=== PATIENT | female | born 1980 | race Caucasian/White ===

== ENCOUNTER 2023-06-02 10:33 | Outpatient (CLI) | payer BC ==
[2023-06-02] MEDS ORDERED: Iopamidol 370 76% 100 ML VIAL ONE (14:04)
== END 2023-06-02 10:34 | disposition home or self-care (01) ==
LOC: BICCT 10:33
PROVIDERS: ATTEND Internal Medicine Hematology & Oncology
DX: C18.7 Malignant neoplasm of sigmoid colon (principal); C78.01 Secondary malignant neoplasm of right lung; K76.0 Fatty (change of) liver, not elsewhere classified; K59.00 Constipation, unspecified; R91.8 Other nonspecific abnormal finding of lung field; Z90.49 Acquired absence of other specified parts of digestive tract
CPT/HCPCS: 71260; 74177

== ENCOUNTER 2023-08-16 07:31 | Outpatient (CLI) | payer BC ==
[2023-08-16] MEDS ORDERED: Iopamidol 370 76% 100 ML VIAL ONE (09:04)
== END 2023-08-16 07:32 | disposition home or self-care (01) ==
LOC: CT 07:31
PROVIDERS: ATTEND Internal Medicine Hematology & Oncology
DX: C18.7 Malignant neoplasm of sigmoid colon (principal); C78.01 Secondary malignant neoplasm of right lung; K76.0 Fatty (change of) liver, not elsewhere classified; R91.8 Other nonspecific abnormal finding of lung field; Z90.49 Acquired absence of other specified parts of digestive tract
CPT/HCPCS: 71260; 74177

== ENCOUNTER 2024-05-27 09:02 | Outpatient (CLI) | payer BC ==
[2024-05-27] MEDS ORDERED: Iopamidol 370 76% 100 ML VIAL ONE (09:53)
== END 2024-05-27 09:03 | disposition home or self-care (01) ==
LOC: BICCT 09:02
PROVIDERS: ATTEND Internal Medicine Hematology & Oncology
DX: C18.7 Malignant neoplasm of sigmoid colon (principal); C78.01 Secondary malignant neoplasm of right lung; J98.4 Other disorders of lung; R91.8 Other nonspecific abnormal finding of lung field; N63.20 Unspecified lump in the left breast, unspecified quadrant; Z98.890 Other specified postprocedural states
CPT/HCPCS: 71260; 74177; 82565; Q9967

== ENCOUNTER 2024-07-29 15:38 | Outpatient (CLI) | payer BC ==
[~2024-07-29 15:38] MED LIST: Iopamidol 370 76% 100 ML VIAL ONE
== END 2024-07-29 15:39 | disposition home or self-care (01) ==
LOC: BICCT 15:38
PROVIDERS: ATTEND Internal Medicine Hematology & Oncology
DX: C18.7 Malignant neoplasm of sigmoid colon (principal); C78.01 Secondary malignant neoplasm of right lung; R91.8 Other nonspecific abnormal finding of lung field
CPT/HCPCS: 71260; 74177

== ENCOUNTER 2025-03-24 08:33 | Outpatient (CLI) | payer BC ==
[2025-03-24] MEDS ORDERED: Iopamidol 370 76% 100 ML VIAL ONE (09:56)
== END 2025-03-24 08:34 | disposition home or self-care (01) ==
LOC: CT 08:33
PROVIDERS: ATTEND Internal Medicine Hematology & Oncology
DX: C18.7 Malignant neoplasm of sigmoid colon (principal); C78.01 Secondary malignant neoplasm of right lung; J95.4 Chemical pneumonitis due to anesthesia; R91.8 Other nonspecific abnormal finding of lung field
CPT/HCPCS: 71260; 74177; Q9967

== ENCOUNTER 2025-05-09 07:51 | Outpatient (CLI) | payer BC ==
[2025-05-09] MEDS ORDERED: Iopamidol 370 76% 100 ML VIAL ONE (12:57)
== END 2025-05-09 07:52 | disposition home or self-care (01) ==
LOC: CT 07:51
PROVIDERS: ATTEND Internal Medicine Hematology & Oncology
DX: C18.7 Malignant neoplasm of sigmoid colon (principal); C78.01 Secondary malignant neoplasm of right lung; R91.8 Other nonspecific abnormal finding of lung field; N63.20 Unspecified lump in the left breast, unspecified quadrant
CPT/HCPCS: 71260; Q9967

== ENCOUNTER 2025-06-18 12:43 | Inpatient (IN) | payer BC ==
[~2025-06-18 12:43] MED LIST changes: -Iopamidol 370 76% 100 ML VIAL ONE; +Iopamidol-370 76% 500 ML MDV (1 ML CHARGE) ONE
[2025-06-18 13:54] LABS: #Basophils 0.08 10x3/uL (0.0-0.2); #Eosinophils 0.15 10x3/uL (0.0-0.7); #Monocytes 0.72 10x3/uL (0.11-0.59); #Neutrophils 7.22 10x3/uL (1.40-6.50); %Basophils 0.8 % (0.0-1.0); %Eosinophils 1.4 % (0.0-10.0); %Lymphocytes 20.3 % (21.0-51.0); %Monocytes 6.9 % (0.0-10.0); %Neutrophils 69.6 % (42.0-75.0); Hematocrit 37.2 % (36.0-47.0); Hemoglobin 12.9 g/dL (12.0-16.0); Mean Corpuscular Hemoglobin 32.4 pg (27.0-31.0); Mean Corpuscular Volume 93.5 fL (78.0-98.0); Platelet Count 256 10x3/uL (130-400); Red Blood Cell (RBC) Count 3.98 mill/uL (4.20-5.40); White Blood Cell (WBC) Count 10.38 10x3/uL (4.8-10.8)
[2025-06-18 14:08] LABS: INR-International Normal Ratio 1.0; Prothrombin Time 12.9 sec (12.0-14.7)
[2025-06-18 14:09] LABS: PTT 24.0 sec (22.9-36.1)
[2025-06-18 14:11] LABS: ALT (SGPT) 13 U/L (Less than 34); AST (SGOT) 17 U/L (11-34); Albumin 3.7 g/dL (3.1-4.5); Alkaline Phosphatase 69 U/L (40-110); Anion Gap 10 mmol/L (10-20); BUN (Urea Nitrogen) 11 mg/dL (7.0-18.7); Bilirubin, Total 0.4 mg/dL (0.3-1.2); Calc. Creatinine Clearance 0 mL/min (70-130); Calcium 8.8 mg/dL (7.8-10.44); Carbon Dioxide 25 mmol/L (22-29); Chloride 110 mmol/L (98-107); Globulin 2.6 g/dL (2.4-3.5); Glucose 96 mg/dL (70-105); Potassium 4.2 mmol/L (3.5-5.1); Sodium 141 mmol/L (136-145)
[2025-06-18] MEDS ORDERED: Ondansetron PF 4 MG/2 ML Vial IVP PRN (14:26)
[2025-06-18] MEDS ORDERED: Bisacodyl 10 MG SUPP PR PRN (15:05)
[2025-06-18] MEDS ORDERED: Pantoprazole 40 MG VIAL ONE (15:37)
[2025-06-18] MEDS ORDERED: Dexamethasone 10 MG/ML VIAL ONE (15:37)
[2025-06-18] MEDS ORDERED: niCARdipine 25 MG/10 ML SDV ONE (17:03)
[2025-06-18] MEDS: Pantoprazole 40 MG VIAL IVP SCH (17:20)
[2025-06-18] MEDS ORDERED: Dexamethasone 4 MG TAB PO SCH (18:00)
[2025-06-18] MEDS: HYDROcodone/Acetaminophen 5/325 mg Tablet PO SCH (20:11)
[2025-06-18] MEDS ORDERED: Scopolamine 1 mg/72 hour Patch TD PRN (21:23)
[2025-06-18] MEDS ORDERED: niCARdipine 25 MG in Sodium Chloride 0.9% 250 ML 250 ML IVPB SCH (22:00)
[2025-06-19] MEDS: Acetaminophen/Codeine 30-300mg Tablet PO PRN (00:38)
[2025-06-19 03:40] LABS: #Basophils 0.03 10x3/uL (0.0-0.2); #Eosinophils Less than 0.03 10x3/uL (0.0-0.7); #Monocytes 0.23 10x3/uL (0.11-0.59); #Neutrophils 13.86 10x3/uL (1.40-6.50); %Basophils 0.2 % (0.0-1.0); %Eosinophils 0.0 % (0.0-10.0); %Lymphocytes 7.3 % (21.0-51.0); %Monocytes 1.5 % (0.0-10.0); %Neutrophils 89.5 % (42.0-75.0); Hematocrit 41.0 % (36.0-47.0); Hemoglobin 14.4 g/dL (12.0-16.0); Mean Corpuscular Hemoglobin 32.9 pg (27.0-31.0); Mean Corpuscular Volume 93.6 fL (78.0-98.0); Platelet Count 269 10x3/uL (130-400); Red Blood Cell (RBC) Count 4.38 mill/uL (4.20-5.40); White Blood Cell (WBC) Count 15.48 10x3/uL (4.8-10.8)
[2025-06-19 03:57] LABS: Anion Gap 13 mmol/L (10-20); BUN (Urea Nitrogen) 12 mg/dL (7.0-18.7); Calc. Creatinine Clearance 204 mL/min (70-130); Calcium 9.4 mg/dL (7.8-10.44); Carbon Dioxide 22 mmol/L (22-29); Chloride 107 mmol/L (98-107); Glucose 145 mg/dL (70-105); Potassium 4.4 mmol/L (3.5-5.1); Sodium 138 mmol/L (136-145)
[2025-06-19] MEDS: FLU (Fluarix Triv) 25-26 (6MOS UP)/PF 45 MCG/0.5 ML Syringe IM ONE (09:33)
[2025-06-19] MEDS: Pantoprazole 40 MG DR.TAB PO SCH (09:33)
[2025-06-19] MEDS: Acetaminophen 325 MG TAB PO PRN (11:57)
[2025-06-19 12:52] VITALS: BMI 36.6
[2025-06-20 03:56] LABS: #Basophils 0.08 10x3/uL (0.0-0.2); #Eosinophils Less than 0.03 10x3/uL (0.0-0.7); #Monocytes 1.02 10x3/uL (0.11-0.59); #Neutrophils 19.96 10x3/uL (1.40-6.50); %Basophils 0.3 % (0.0-1.0); %Eosinophils 0.0 % (0.0-10.0); %Lymphocytes 6.7 % (21.0-51.0); %Monocytes 4.3 % (0.0-10.0); %Neutrophils 85.1 % (42.0-75.0); Hematocrit 40.0 % (36.0-47.0); Hemoglobin 13.9 g/dL (12.0-16.0); Mean Corpuscular Hemoglobin 32.9 pg (27.0-31.0); Mean Corpuscular Volume 94.8 fL (78.0-98.0); Platelet Count 288 10x3/uL (130-400); Red Blood Cell (RBC) Count 4.22 mill/uL (4.20-5.40); White Blood Cell (WBC) Count 23.49 10x3/uL (4.8-10.8)
[2025-06-20 04:12] LABS: Anion Gap 15 mmol/L (10-20); BUN (Urea Nitrogen) 17 mg/dL (7.0-18.7); Calc. Creatinine Clearance 210 mL/min (70-130); Calcium 9.2 mg/dL (7.8-10.44); Carbon Dioxide 21 mmol/L (22-29); Chloride 107 mmol/L (98-107); Glucose 173 mg/dL (70-105); Potassium 4.3 mmol/L (3.5-5.1); Sodium 139 mmol/L (136-145)
[2025-06-20] MEDS: PNEUMOC 20-VAL CONJ-DIP CRM/PF 0.5 ML SYRINGE IM ONE (09:05)
[2025-06-20] MEDS: Pantoprazole 40 MG VIAL IVP SCH (09:05)
[2025-06-20] MEDS ORDERED: Lidocaine 1% w/Epinephrine 1:100K 20 ML VIAL ONE ×2 (09:59)
[2025-06-20] MEDS ORDERED: Thrombin 5000 UNITS/5 ML VIAL ONE (09:59)
[2025-06-20] MEDS ORDERED: Bacitracin Zinc Ointment 30 gm TUBE ONE (09:59)
[2025-06-20] MEDS ORDERED: fentaNYL PF 100 MCG/2 ML SYRINGE ONE ×3 (10:13→14:06)
[2025-06-20] MEDS ORDERED: Rocuronium Bromide 10 MG/ML (10ML VIAL) ONE (10:13)
[2025-06-20] MEDS ORDERED: Lidocaine 1% PF 5 ML VIAL ONE (10:13)
[2025-06-20] MEDS ORDERED: CEFAZOLIN 1 GM VIAL ONE (12:02)
[2025-06-20] MEDS ORDERED: Ondansetron PF 4 MG/2 ML Vial ONE (14:00)
[2025-06-20] MEDS ORDERED: SUGAMMADEX SODIUM 200 MG/2 ML VIAL ONE (14:07)
[2025-06-20] MEDS ORDERED: MINERAL OIL/WHITE PETROLATUM 3.5 GM TUBE ONE (14:19)
[2025-06-20] MEDS: HYDROcodone/Acetaminophen 5/325 mg Tablet PO PRN (16:52)
[2025-06-21 03:47] LABS: Hematocrit 41.4 % (36.0-47.0); Hemoglobin 13.7 g/dL (12.0-16.0); Mean Corpuscular Hemoglobin 31.9 pg (27.0-31.0); Mean Corpuscular Volume 96.3 fL (78.0-98.0); Platelet Count 302 10x3/uL (130-400); Red Blood Cell (RBC) Count 4.30 mill/uL (4.20-5.40); White Blood Cell (WBC) Count 26.21 10x3/uL (4.8-10.8)
[2025-06-21 03:58] LABS: Anion Gap 14 mmol/L (10-20); BUN (Urea Nitrogen) 18 mg/dL (7.0-18.7); Calc. Creatinine Clearance 206 mL/min (70-130); Calcium 8.7 mg/dL (7.8-10.44); Carbon Dioxide 21 mmol/L (22-29); Chloride 105 mmol/L (98-107); Glucose 123 mg/dL (70-105); Potassium 4.3 mmol/L (3.5-5.1); Sodium 136 mmol/L (136-145)
[2025-06-21 04:07] LABS: Platelet Adequacy Comment Platelets Normal; Polychromasia SLIGHT = 2-3 cells HPF (0-2); Smudge Cells 6.0 %
[2025-06-21] MEDS: Ondansetron PF 4 MG/2 ML Vial IVP PRN (04:46)
[2025-06-21] MEDS: Pantoprazole 40 MG DR.TAB PO SCH (08:01)
[2025-06-21] MEDS ORDERED: Electrolyte Replacement Protocol 1 EACH FS SCH (10:15)
[2025-06-21] MEDS ORDERED: Magnesium 2 GM/50 ML(in water) 2 GM in Premix 1 BAG IVPB PRN (11:15)
[2025-06-21] MEDS ORDERED: PHOS-NAK 1 PKT PACK PO PRN (11:15)
[2025-06-21] MEDS ORDERED: Potassium Chloride 20 MEQ in Premix 1 BAG IVPB PRN (11:15)
[2025-06-21] MEDS: Prochlorperazine 10 MG/2 ML VIAL SLOW IVP PRN (21:35)
[2025-06-22 04:15] LABS: #Basophils 0.10 10x3/uL (0.0-0.2); #Eosinophils Less than 0.03 10x3/uL (0.0-0.7); #Monocytes 1.87 10x3/uL (0.11-0.59); #Neutrophils 17.74 10x3/uL (1.40-6.50); %Basophils 0.4 % (0.0-1.0); %Eosinophils 0.0 % (0.0-10.0); %Lymphocytes 7.3 % (21.0-51.0); %Monocytes 8.3 % (0.0-10.0); %Neutrophils 79.1 % (42.0-75.0); Hematocrit 41.1 % (36.0-47.0); Hemoglobin 14.5 g/dL (12.0-16.0); Mean Corpuscular Hemoglobin 32.9 pg (27.0-31.0); Mean Corpuscular Volume 93.2 fL (78.0-98.0); Platelet Count 275 10x3/uL (130-400); Red Blood Cell (RBC) Count 4.41 mill/uL (4.20-5.40); White Blood Cell (WBC) Count 22.45 10x3/uL (4.8-10.8)
[2025-06-22 04:30] LABS: Anion Gap 14 mmol/L (10-20); BUN (Urea Nitrogen) 18 mg/dL (7.0-18.7); Calc. Creatinine Clearance 232 mL/min (70-130); Calcium 8.8 mg/dL (7.8-10.44); Carbon Dioxide 24 mmol/L (22-29); Chloride 102 mmol/L (98-107); Glucose 128 mg/dL (70-105); Potassium 4.3 mmol/L (3.5-5.1); Sodium 136 mmol/L (136-145)
[2025-06-22 06:21] VITALS: BMI 34.3
[2025-06-22] MEDS: Senokot S 8.6-50 MG TAB PO PRN (20:37)
[2025-06-23] MEDS: Mupirocin 1 GM TUBE TP SCH (07:54)
[2025-06-23] MEDS: Lisinopril 10 MG TAB PO SCH (09:15)
[2025-06-23] MEDS ORDERED: HYDROcodone/Acetaminophen 5/325 mg Tablet PO PRN (12:15)
[2025-06-23] MEDS: Dexamethasone 1 MG TAB PO SCH ×2 (12:29→16:49)
[2025-06-23] MEDS: HYDROcodone/Acetaminophen 5/325 mg Tablet PO PRN (12:29)
[2025-06-24 09:12] VITALS: TEMP 98
[2025-06-24 13:24] VITALS: BP 137/79
[2025-06-25] MEDS ORDERED: Dexamethasone 1 MG TAB PO SCH (12:00)
[2025-06-27] MEDS ORDERED: Dexamethasone 1 MG TAB PO SCH (12:00)
== END 2025-06-24 13:25 | disposition home or self-care (01) | DRG 25 ==
LOC: ERS 12:43 → ERHOLD 14:25 → CCU 18:23 → MSONC 06-22 13:10
PROVIDERS: ADMIT Family Medicine; ATTEND Internal Medicine
PROC: 3E02340 Introduction of Influenza Vaccine into Muscle, Percutaneous Approach (ICD-10-PCS; 2025-06-19)
PROC: 00BC0ZZ Excision of Cerebellum, Open Approach (ICD-10-PCS; principal; 2025-06-20)
PROC: 03HY32Z Insertion of Monitoring Device into Upper Artery, Percutaneous Approach (ICD-10-PCS; 2025-06-20)
PROC: 4A133B1 Monitoring of Arterial Pressure, Peripheral, Percutaneous Approach (ICD-10-PCS; 2025-06-20)
PROC: 4A133J1 Monitoring of Arterial Pulse, Peripheral, Percutaneous Approach (ICD-10-PCS; 2025-06-20)
PROC: 0T9B70Z Drainage of Bladder with Drainage Device, Via Natural or Artificial Opening (ICD-10-PCS; 2025-06-20)
PROC: 3E03329 Introduction of Other Anti-infective into Peripheral Vein, Percutaneous Approach (ICD-10-PCS; 2025-06-20)
DX: C79.31 Secondary malignant neoplasm of brain (principal); G93.6 Cerebral edema; I61.4 Nontraumatic intracerebral hemorrhage in cerebellum; C18.9 Malignant neoplasm of colon, unspecified; D72.829 Elevated white blood cell count, unspecified; T38.0X5A Adverse effect of glucocorticoids and synthetic analogues, initial encounter; I10 Essential (primary) hypertension; Z85.038 Personal history of other malignant neoplasm of large intestine; Z90.49 Acquired absence of other specified parts of digestive tract; Z98.891 History of uterine scar from previous surgery; Z93.3 Colostomy status; Z88.5 Allergy status to narcotic agent; Z88.8 Allergy status to other drugs, medicaments and biological substances; Z23 Encounter for immunization
CPT/HCPCS: 36415; 70450; 70470; 70553; 76376; 80048; 80053; 85025; 85610; 85730; 86850; 86900; 86901; 88307; 88331; 88334; 88341; 88342; 96365; 96375; 96376; C1713; C1751; J0690; J0780; J1100; J2405; J2470; J2704; J3010; J7030; J8540; Q9967

== ENCOUNTER 2025-07-22 09:18 | Outpatient (CLI) | payer BC | END 2025-07-22 09:19 | disposition home or self-care (01) | LOC: SCSMRI 09:18 | PROVIDERS: ATTEND Radiology Radiation Oncology | DX: C79.31 Secondary malignant neoplasm of brain (principal); Z98.890 Other specified postprocedural states | CPT/HCPCS: 70553; 76376 ==